=== PATIENT | female | born 1965 | race Two or more races ===

== ENCOUNTER 2021-11-09 06:30 | Day surgery (SDC) | payer OTHER ==
[~2021-11-09] VITALS: Ht 165.1 cm; Wt 75.3 kg
[~2021-11-09 06:30] MED LIST: ATENOLOL; DIOVAN320 MG PO; ZETIA10 MG
== END 2021-11-09 11:50 | disposition home or self-care (01) ==
LOC: CIR.AMB 06:30
PROVIDERS: ATTEND Orthopaedic Surgery Hand Surgery
DX: G56.01 Carpal tunnel syndrome, right upper limb (principal); Z20.822 Contact with and (suspected) exposure to COVID-19; Z88.0 Allergy status to penicillin; I10 Essential (primary) hypertension; M79.7 Fibromyalgia; E78.5 Hyperlipidemia, unspecified